=== PATIENT | male | born 1945 | race Caucasian/White ===

== ENCOUNTER 2017-10-22 08:01 | Emergency (ER) | payer OTHER ==
[~2017-10-22] VITALS: Ht 165.1 cm; Wt 72.0 kg
[2017-10-22 08:11] VITALS: BP 124/80
== END 2017-10-22 10:17 | disposition left against medical advice (07) ==
LOC: ED 10:11
DX: R00.2 Palpitations (principal); Z53.21 Procedure and treatment not carried out due to patient leaving prior to being seen by health care provider
CPT/HCPCS: 93005; 99281